=== PATIENT | female | born 1980 | race Caucasian/White ===

== ENCOUNTER 2020-05-24 12:16 | Emergency (ER) | payer BC, OTHER ==
[~2020-05-24] VITALS: Ht 167.6 cm; Wt 99.8 kg
[2020-05-24 13:27] LABS: HEMOGLOBIN 13.6 gm/dl (12.3-15.3); RED BLOOD COUNT 4.24 M/UL (4.00-5.10); WHITE BLOOD COUNT 3.4 K/UL (4.5-11.0)
[2020-05-24 14:05] LABS: BUN/CREATININE RATIO 14 (0-10)
== END 2020-05-24 18:38 | disposition home or self-care (01) ==
LOC: ER1 12:16
PROVIDERS: Family Medicine
DX: U07.1 COVID-19 (principal); J12.82 Pneumonia due to coronavirus disease 2019; D72.819 Decreased white blood cell count, unspecified; E66.01 Morbid (severe) obesity due to excess calories; I10 Essential (primary) hypertension; Z79.899 Other long term (current) drug therapy; Z88.5 Allergy status to narcotic agent
CPT/HCPCS: 71045; 80053; 82550; 82553; 83874; 84484; 85025; 85379; 93005; 99285; M0239; Q9967

== ENCOUNTER 2020-05-27 14:02 | Emergency (ER) | payer BC, OTHER ==
[2020-05-27 17:22] LABS: HEMOGLOBIN 13.7 gm/dl (12.3-15.3); RED BLOOD COUNT 4.21 M/UL (4.00-5.10); WHITE BLOOD COUNT 5.1 K/UL (4.5-11.0)
[2020-05-27 17:45] LABS: BUN/CREATININE RATIO 11 (0-10)
[2020-05-27] MEDS ORDERED: ZOFRAN ODT 4 MG4 MG PO (19:08)
== END 2020-05-27 19:20 | disposition home or self-care (01) ==
LOC: ER1 14:02
PROVIDERS: Family Medicine
DX: R20.2 Paresthesia of skin (principal); R11.0 Nausea; R51.9 Headache, unspecified; I10 Essential (primary) hypertension; Z86.16 Personal history of COVID-19; Z88.5 Allergy status to narcotic agent
CPT/HCPCS: 70450; 71045; 80053; 81001; 82550; 82553; 83605; 83690; 83735; 83874; 84439; 84443; 84484; 85025; 86140; 93005; 96374; 96375; 99285; J1200; J1885; J2765

== ENCOUNTER → 2021-11-24 | Outpatient (CLI) | payer BC ==
[~2021-11-24] MED LIST: ZOFRAN ODT 4 MG4 MG PO
== END ==
LOC: HEART CORB 12:42
DX: I11.9 Hypertensive heart disease without heart failure (principal); R00.2 Palpitations; R06.02 Shortness of breath
CPT/HCPCS: 93306